=== PATIENT | female | born 1965 | race Caucasian/White ===

== ENCOUNTER 2019-06-16 15:25 | Emergency (ER) | payer OTHER ==
[~2019-06-16] VITALS: Ht 167.6 cm; Wt 136.1 kg
[~2019-06-16 15:25] MED LIST: LISINOPRIL40 MG; NEXIUM20 M1; TRAMADOL 50 MG50 MG; ULTRAM 50MG TAB50 MG PO
[2019-06-16 16:50] LABS: ABSOLUTE EOSINOPHILS 0.1 thou/uL (0.0-0.7); ABSOLUTE LYMPHOCYTES 1.4 thou/uL (0.8-5.3); ABSOLUTE MONOCYTES 0.8 thou/uL (0.0-1.2); ABSOLUTE NEUTROPHILS 6.5 thou/uL (1.6-8.1); BASOPHILS 0.4 %; EOSINOPHILS 1.3 %; HEMATOCRIT 37.5 % (37.0-47.0); HEMOGLOBIN 12.5 gm/dL (12.0-15.0); MCH 27.9 pg (26.0-34.0); MCHC 33.3 g/dL (28.0-37.0); MCV 83.9 fL (80.0-100.0); MONOCYTES 9.4 %; MPV 10.4 fl. (7.2-11.1); NUCLEATED RBCS 0 /100WBC; PLATELET COUNT* 223 thou/uL (150-400); POLYS 72.9 %; RBC 4.47 mil/uL (4.20-5.00); RDW-CV 15.4 % (10.5-14.5); WBC 8.9 thou/uL (4.0-11.0)
[2019-06-16 16:57] LABS: CALCIUM 9.3 mg/dL (8.5-10.1)
[2019-06-16 17:02] LABS: ALBUMIN 3.4 g/dL (3.4-5.0); TOTAL BILIRUBIN 0.3 mg/dL (<0.1-1.0); TOTAL PROTEIN 7.8 g/dL (6.4-8.2); URIC ACID* 6.1 mg/dL (2.6-7.2)
[2019-06-16] MEDS ORDERED: KEFLEX500 M1 PO (17:15)
[2019-06-16] MEDS ORDERED: NORCO 5-325 TA1 EAC1 PO (17:15)
[2019-06-16] MEDS ORDERED: BACTRIM DS TAB1 EACH PO (17:15)
[2019-06-16 17:52] LABS: ESR (SEDRATE) 42 mm/hr (0-30)
[2019-06-16 19:06] VITALS: BP 133/68
--- NOTE | 2019-06-17 13:23 | EKG ---
[place] [address] ELECTROCARDIOGRAM REPORT Name: PHOENIX AARON Room: [facility]#: [id number] Admission: 06/16/19 Attend Phys: Discharge: 06/16/19 Date of : 63 Report #: [id number] THIS REPORT FOR: //name// [facility] ED Test Date: 2019-06-16 Test Time: 18:21:05 Pat Name: PHOENIX AARON Department: Room: Gender: F Nail Technician: : 1965 Requested By: Zoraida Wilkinson Order Number: [id number] MD: Bhanu Duque Measurements Intervals [place] Rate: 74 P: 52 [place]: 164 QRS: 13 QRSD: 89 T: 21 QT: 409 QTc: 454 Interpretive Statements Sinus rhythm Compared to ECG 07/26/2010 04:24:33 No significant changes Electronically Signed On 06-17-2019 13:22:54 CDT by Bhanu Duque [email or web address] <ELECTRONICALLY SIGNED> By: Bhanu Duque MD, [facility] 06/17/19 1322 1821 182 Bhanu Duque MD, FACC /EPI
== END 2019-06-16 19:07 | disposition home or self-care (01) ==
LOC: M.ERS 15:25
PROVIDERS: Physician Assistant
DX: L03.113 Cellulitis of right upper limb (principal); I10 Essential (primary) hypertension; E78.00 Pure hypercholesterolemia, unspecified; Z90.49 Acquired absence of other specified parts of digestive tract; Z98.890 Other specified postprocedural states

== ENCOUNTER 2019-07-06 19:48 | Emergency (ER) | payer OTHER ==
[~2019-07-06] VITALS: Ht 167.6 cm; Wt 136.1 kg
[~2019-07-06 19:48] MED LIST changes: +BACTRIM DS TAB1 EACH PO; +KEFLEX500 M1 PO; +NORCO 5-325 TA1 EAC1 PO
[2019-07-06] MEDS ORDERED: LEVOTHROXINE (20:00)
[2019-07-06] MEDS ORDERED: NEXIUM20 M1 PO (20:00)
[2019-07-06 20:33] LABS: ABSOLUTE EOSINOPHILS 0.2 thou/uL (0.0-0.7); ABSOLUTE LYMPHOCYTES 2.3 thou/uL (0.8-5.3); ABSOLUTE MONOCYTES 0.6 thou/uL (0.0-1.2); ABSOLUTE NEUTROPHILS 4.6 thou/uL (1.6-8.1); BASOPHILS 0.4 %; EOSINOPHILS 2.4 %; HEMATOCRIT 36.7 % (37.0-47.0); HEMOGLOBIN 12.1 gm/dL (12.0-15.0); LYMPHOCYTES 29.5 %; MCH 27.9 pg (26.0-34.0); MCV 84.4 fL (80.0-100.0); MONOCYTES 7.7 %; MPV 10.3 fl. (7.2-11.1); NUCLEATED RBCS 0 /100WBC; PLATELET COUNT* 254 thou/uL (150-400); RBC 4.35 mil/uL (4.20-5.00); RDW-CV 15.8 % (10.5-14.5); WBC 7.7 thou/uL (4.0-11.0)
[2019-07-06 20:41] LABS: CALCIUM 9.1 mg/dL (8.5-10.1); CREATININE 0.7 mg/dL (0.6-1.3); POTASSIUM 3.8 mmol/L (3.5-5.1)
[2019-07-06 20:51] LABS: ALBUMIN 3.4 g/dL (3.4-5.0); TOTAL BILIRUBIN 0.4 mg/dL (<0.1-1.0); TOTAL PROTEIN 7.6 g/dL (6.4-8.2)
[2019-07-06 20:53] LABS: PROTIME 10.6 Seconds (9.20-11.50)
[2019-07-06 21:19] LABS: URINE BILIRUBIN NEGATIVE (Negative); URINE BLOOD NEGATIVE (Negative); URINE CLARITY CLEAR; URINE COLOR YELLOW; URINE GLUCOSE-RANDOM NEGATIVE (Negative); URINE KETONES TRACE (Negative); URINE LEUKOCYTES-REFLEX NEGATIVE (Negative); URINE NITRITE-REFLEX NEGATIVE (Negative); URINE PROTEIN NEGATIVE (Negative); URINE SPECIFIC GRAVITY >= 1.030 (1.005-1.030); URINE UROBILINOGEN 0.2 E.U./dl (0.2-1.0)
[2019-07-06 21:37] LABS: INFLUENZA A ANTIGEN Negative (Negative); INFLUENZA B ANTIGEN Negative (Negative)
[2019-07-06] MEDS ORDERED: PROAIR HFA8.5 GM INH (22:43)
[2019-07-06 23:00] VITALS: BP 142/76
--- NOTE | 2019-07-07 14:25 | EKG ---
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
== END 2019-07-06 23:00 | disposition home or self-care (01) ==
LOC: M.ERS 19:48
PROVIDERS: Emergency Medicine
DX: J06.9 Acute upper respiratory infection, unspecified (principal); I10 Essential (primary) hypertension; E78.00 Pure hypercholesterolemia, unspecified; Z90.49 Acquired absence of other specified parts of digestive tract

== ENCOUNTER 2019-07-16 05:35 | Emergency (ER) | payer OTHER ==
[~2019-07-16] VITALS: Ht 167.6 cm; Wt 136.1 kg
[~2019-07-16 05:35] MED LIST changes: +LEVOTHROXINE; +NEXIUM20 M1 PO; +PROAIR HFA8.5 GM INH
[2019-07-16] MEDS ORDERED: TRAMADOL 50 MG50 MG (05:46)
[2019-07-16 06:11] LABS: ABSOLUTE EOSINOPHILS 0.2 thou/uL (0.0-0.7); ABSOLUTE LYMPHOCYTES 1.7 thou/uL (0.8-5.3); ABSOLUTE MONOCYTES 0.6 thou/uL (0.0-1.2); ABSOLUTE NEUTROPHILS 3.6 thou/uL (1.6-8.1); BASOPHILS 0.4 %; EOSINOPHILS 2.7 %; HEMATOCRIT 35.4 % (37.0-47.0); HEMOGLOBIN 11.8 gm/dL (12.0-15.0); LYMPHOCYTES 27.6 %; MCH 28.1 pg (26.0-34.0); MCHC 33.4 g/dL (28.0-37.0); MONOCYTES 10.6 %; MPV 10.5 fl. (7.2-11.1); NUCLEATED RBCS 0 /100WBC; PLATELET COUNT* 213 thou/uL (150-400); POLYS 58.7 %; RBC 4.22 mil/uL (4.20-5.00); RDW-CV 15.6 % (10.5-14.5); WBC 6.1 thou/uL (4.0-11.0)
[2019-07-16 06:24] LABS: PROTIME 10.3 Seconds (9.20-11.50)
[2019-07-16 06:30] LABS: CALCIUM 8.7 mg/dL (8.5-10.1); CREATININE 0.7 mg/dL (0.6-1.3); POTASSIUM 4.3 mmol/L (3.5-5.1)
[2019-07-16 06:34] LABS: ALBUMIN 3.2 g/dL (3.4-5.0); TOTAL BILIRUBIN 0.4 mg/dL (<0.1-1.0); TOTAL PROTEIN 6.6 g/dL (6.4-8.2)
[2019-07-16] MEDS ORDERED: ATIVAN1 M1 PO (08:15)
[2019-07-16 09:09] VITALS: BP 141/57
--- NOTE | 2019-07-16 15:50 | EKG ---
[place] [address] ELECTROCARDIOGRAM REPORT Name: PHOENIX AARON Room: [facility]#: [id number] Admission: 07/16/19 Attend Phys: Discharge: 07/16/19 Date of : 63 Report #: [id number] THIS REPORT FOR: //name// [facility] ED Test Date: 2019-07-16 Test Time: 08:07:04 Pat Name: PHOENIX AARON Department: Room: Gender: F Psychiatric Tech: : 1965 Requested By: Rodolfo Casper Order Number: [id number] MD: Angelo Van Measurements Intervals [place] Rate: 61 P: 45 [place]: 150 QRS: 22 QRSD: 93 T: 35 QT: 423 QTc: 426 Interpretive Statements Sinus rhythm Baseline wander in lead(s) V1 Compared to ECG 07/06/2019 19:57:09 No significant changes Electronically Signed On 07-16-2019 15:50:03 ADDICTION THERAPIST by Angelo Van [email or web address] <ELECTRONICALLY SIGNED> By: Angelo Van MD, [facility] 07/16/19 1550 6 6 Angelo Van MD, FACC /EPI
--- NOTE | 2019-07-16 15:50 | EKG ---
[place] [address] ELECTROCARDIOGRAM REPORT Name: PHOENIX AARON Room: [facility]#: [id number] Admission: 07/16/19 Attend Phys: Discharge: 07/16/19 Date of : 63 Report #: [id number] THIS REPORT FOR: //name// [facility] ED Test Date: 2019-07-16 Test Time: 05:42:24 Pat Name: PHOENIX AARON Department: Room: Gender: F [employer] Supervisor: CORTNEY : 1965 Requested By: Tomeka Hayden Order Number: [id number] MD: Angelo Van Measurements Intervals [place] Rate: 75 P: 43 [place]: 153 QRS: -2 QRSD: 154 T: 18 QT: 389 QTc: 435 Interpretive Statements Sinus rhythm Probable left ventricular hypertrophy Compared to ECG 07/06/2019 19:57:09 No significant changes Electronically Signed On 07-16-2019 15:49:55 MUSIC VIDEO DIRECTOR by Angelo Van [email or web address] <ELECTRONICALLY SIGNED> By: Angelo Van MD, [facility] 07/16/19 1549 0542 0542 Angelo Van MD, FACC /EPI
== END 2019-07-16 09:10 | disposition home or self-care (01) ==
LOC: M.ERS 05:35
PROVIDERS: Personal Emergency Response Attendant
DX: F41.9 Anxiety disorder, unspecified (principal); E78.00 Pure hypercholesterolemia, unspecified; Z90.49 Acquired absence of other specified parts of digestive tract